=== PATIENT | female | born 1945 | race Caucasian/White ===

== ENCOUNTER → 2017-02-26 | Outpatient (CLI) | payer MEDICARE, OTHER ==
[~2017-02-26] MED LIST: ASPIRIN325 MG PO; HYDREA500 MG PO; HYZAAR 100-251 EACH PO; NORCO 5-325 TA1 EACH PO; NORVASC10 MG PO
--- NOTE | ~2017-02-26 | NDGEN ---
PATIENT'S NAME: CJ REBOLLEDO [facility] AGE: 71 Y [address] ROOM: [place] [address] LOCATION: [facility] ADMIT DATE: 02/26/2017 Neurodiagnostics DISCHARGE DATE: FAMILY PHYSICIAN: Garcia Rosa DO ATTENDING PHYSICIAN: Garcia Rosa Procedure Date 02/26/17 PROCEDURE: NERVE CONDUCTION STUDY, EMG OF THE BILATERAL LOWER EXTREMITIES. THE PATIENT COMES IN WITH A CHIEF COMPLAINT OF PAIN INTO HER GREAT TOE. THE PAIN IS PRIMARILY AT THE TIP OF THE TOE AND NOT PROXIMAL TO THE DISTAL JOINT OF THE GREAT TOE. THERE IS NO PAIN INTO THE FOOT BILATERALLY. THE PATIENT HAS EXCELLENT POWER IN THE BILATERAL LOWER EXTREMITIES ON DORSIFLEXION PLANTAR FLEXION, EVERSION, AND INVERSION OF THE FEET. WITH HER FEET DANGLING, THE FEET BECOME DUSKY PURPLISH IN COLOR AND THAT SEEMS TO BE POSITIONALLY RELATED WITH HER FEET ON THE BED THE COLOR IS NORMAL. THE NERVE CONDUCTION STUDIES WERE PERFORMED STIMULATING THE PERONEAL TIBIAL MOTOR AND THE SURAL SENSORY NERVES. THE NERVE CONDUCTION VELOCITIES WERE ALL WITHIN NORMAL LIMITS, AND THE MOTOR ONSET LATENCIES WERE ALL NORMAL. THERE WAS SLIGHTLY LOW AMPLITUDES IN THE RIGHT PERONEAL NERVE AND THE ETIOLOGY OF THIS IS UNCLEAR BUT WILL LIKELY BE REPEATED AFTER THE DICTATION HERE. SENSORY NERVE CONDUCTION STUDIES WERE PERFORMED AND PEAK ONSET LATENCIES WERE ALL NORMAL AND NERVE CONDUCTION VELOCITIES WERE ALL NORMAL. TYPICALLY, THE ABSENCE OF SURAL NERVE CONDUCTIONS IS COMMON AFTER AGE 65. THE PRESENCE OF THE SURAL NERVE ACTION POTENTIAL AFTER THIS AGE IS A GOOD SIGN. NEEDLE EMG WAS NEXT PERFORMED IN THE RIGHT LOWER EXTREMITY AT THE TIBIALIS ANTERIOR MUSCLE TO RULE OUT ANY EVIDENCE OF A COMPRESSIVE NEUROPATHY. THE NERVE UNIT ACTION POTENTIALS WERE ALL NORMAL ON RECRUITMENT AND THERE WAS NO EVIDENCE OF ANY FIBRILLATION POTENTIALS OR POSITIVE SHARP WAVES WITH THE MUSCLE AT REST. IMPRESSION: The motor and sensory nerve conduction studies were all within normal limits, though there were somewhat low amplitudes in the right peroneal nerve. This will be repeated as it may just be a technical error here and this report will be updated. Needle EMG study does not support evidence for a mononeuropathy or process such as a peroneal palsy since the tibialis anterior muscle is normal and motor recruitment is normal. Differential diagnosis would possibly include a vasculitic type processes as the patient does have painful skin to the touch, such that a leukocytoclastic vasculitis would be considered possibly in the setting of a thrombophilia. The patient does have some symptoms that are suggestive of a Raynaud type of pain on exposure to PATIENT'S NAME: CJ REBOLLEDO [facility] AGE: 71 Y [address] ROOM: [place], [place] [address] LOCATION: [facility] ADMIT DATE: 02/26/2017 Neurodiagnostics DISCHARGE DATE: FAMILY PHYSICIAN: Garcia Rosa DO ATTENDING PHYSICIAN: Garcia Rosa thus medications such as dihydropyridine calcium channel michel may be considered. MD DANII DURANT/ludivina /[id number] dtt: 03/05/17 1702 , CYRUS CORREA dtd: 02/26/17 2033
--- NOTE | ~2017-02-26 | NDGEN ---
PATIENT'S NAME: CJ REBOLLEDO [facility] AGE: 71 Y [address] ROOM: [place] [address] LOCATION: [facility] ADMIT DATE: 02/26/2017 Neurodiagnostics DISCHARGE DATE: FAMILY PHYSICIAN: Garcia Rosa DO ATTENDING PHYSICIAN: Garcia Rosa DATE OF PROCEDURE: 02/26/2017 ADDENDUM: This 71-year-old female patient has isolated pain that is affecting her right great toe as well as some numbness that seems to be relegated to the webbing between the great and second toe, and then the anterior portion of the distal dorsum of the right foot numbness also goes on to the toes of the right foot, mostly the great toe and second toe allodynia to touch at the right toe. As previously mentioned, we repeated the right peroneal motor testing when amplitudes were found to be below 1 mV in the range of 500 microvolts; however, the onset latencies and nerve conduction velocities seemed to be well preserved. This is an odd presentation as this does not point to a focal compression neuropathy at the fibular head and there was no slowing at the fibular head. The patient does have a history of a right ankle injury when she was a young girl which caused her right foot to swell up, but no known history of fracture of the ankle was reported. IMPRESSION: There definitely is low amplitudes in the right peroneal nerve with preserved onset latencies and nerve conduction studies. 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 Right peroneal nerve supplies the dorsum of the foot particularly at the great toe and sensory perception at the base of the great toe area. 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 It is surprising however, the patient does not have any weakness on dorsiflexion and eversion of the foot. Nonetheless, I recommended that the patient make sure that she walks at home with shoes as she does state that she walks barefoot all the time. It is quite possible with senescent of the nerve with time, that a simple painful focal neuropathy is developed due to some poorly localized injury to the right peroneal motor nerve that carry autonomic fibers for pain. PATIENT'S NAME: CJ REBOLLEDO [facility] AGE: 71 Y [address] ROOM: [place], [place] [address] LOCATION: [facility] ADMIT DATE: 02/26/2017 Neurodiagnostics DISCHARGE DATE: FAMILY PHYSICIAN: Garcia Rosa DO ATTENDING PHYSICIAN: Garcia Rosa MD JRM/ludivina /[id number] dtt: 03/05/17 1712 , CYRUS CORREA dtd: 02/26/17 2127
== END | disposition disaster alternative care site (69) ==
LOC: GNEU 14:22
DX: M79.674 Pain in right toe(s) (principal); R20.0 Anesthesia of skin; Z87.828 Personal history of other (healed) physical injury and trauma

== ENCOUNTER 2017-03-04 11:15 | Inpatient (IN) | payer MEDICARE, OTHER ==
[~2017-03-04] VITALS: Ht 160 cm; Wt 95.9 kg
--- NOTE | ~2017-03-04 | CON ---
PATIENT'S NAME: CJ REBOLLEDO [facility] AGE: 71 Y [address] ROOM: [place] [id number] [place] [facility] [place] DATE: 03/04/2017 Consultation DISCHARGE DATE: FAMILY PHYSICIAN: Garcia Rosa DO ATTENDING PHYSICIAN: CYRUS PERALTA DATE OF CONSULTATION: 03/04/2017 REFERRING PHYSICIAN: Eleuterio Kelley MD PRINCIPAL DIAGNOSES: 1. Acute cholecystitis. 2. Abdominal pain. HISTORY: The patient is a 71-year-old old female who presented to an outside hospital with complaints of abdominal pain, and the patient states that the pain began 2 days previously. On both occasions, the pain came after meals. Yesterday, she noted some nausea and vomiting along with the pain again after meals. She was seen at an outside hospital where an ultrasound was done and felt to be consistent with acute cholecystitis and we therefore asked to see her in consultation for possible treatment of her acute cholecystitis. PAST MEDICAL HISTORY: Significant for thrombocytosis, the etiology of the thrombocytosis is not clear, and she has been evaluated for it and hypertension. PAST SURGICAL HISTORY: Significant for some surgery involving her toe. ALLERGIES: NONE. MEDICATIONS: 1. Norvasc 10 mg p.o. daily. 2. Aspirin 325 p.o. daily. 3. Hydroxyurea 100 mg p.o. Saturday, Saturday, and Saturday. 4. Hyzaar 1 tab p.o. every day. PHYSICAL EXAMINATION: GENERAL: She is awake, alert, and oriented x3. Complaining of some right upper quadrant pain. LUNGS: Clear. HEART: Regular rate and rhythm. ABDOMEN: Soft. Mild tenderness in the right upper quadrant, but no guarding and no rebound. NEUROLOGIC: Sensory and motor are intact. PATIENT'S NAME: CJ REBOLLEDO [facility] AGE: 71 Y [address] ROOM: [place] [address] [place] [facility] [place]: 03/04/2017 Consultation DISCHARGE DATE: FAMILY PHYSICIAN: Garcia Rosa DO ATTENDING PHYSICIAN: CYRUS PERALTA LABORATORY VALUES: Pending, but white blood cell count from the outside hospital was 5400 with a hemoglobin of 12.2 and hematocrit of 39, and our labs here are pending. She also had a BUN of 25, creatinine is 1.29, potassium 3.6 on labs from the outside hospital. Lipase from the outside hospital was 45. Ultrasound done at an outside hospital showed both gallstones as well as sludge and gallbladder wall thickening and was felt to be consistent with acute cholecystitis. ASSESSMENT AND PLAN: A 71-year-old female with abdominal pain, nausea, vomiting after meals. The ultrasound is consistent with acute cholecystitis. No evidence of choledocholithiasis. Plan is surgery pending medical clearance. ALEJANDRO KELLEY MD CC/modl /[id number] d: t: 03/04/17 2329, CONSULTATION REPORT
--- NOTE | ~2017-03-04 | HP ---
PATIENT'S NAME: CJ REBOLLEDO [facility] AGE: 71 Y [address] ROOM: [place] [address] [place] [facility] [place] DATE: 03/04/2017 History & Physical DISCHARGE DATE: FAMILY PHYSICIAN: Garcia Rosa DO ATTENDING PHYSICIAN: CYRUS PERALTA DATE OF SERVICE: 03/04/2017 CHIEF COMPLAINT: Transferred from outside facility for acute cholecystitis and surgical intervention. HISTORY OF PRESENT ILLNESS: This is a very pleasant 71-year-old female with past medical history notable for hypertension, essential thrombocytosis, transferred from outside hospital after presenting with right upper quadrant predominant abdominal pain. Pain began yesterday afternoon and the patient has been unable to tolerate any food since then with associated nausea and vomiting. She denies any recent fevers or chills. She has not had symptoms such as this previously. Upon presentation to the outside facility, she was noted to be afebrile with stable vital signs and absence of leukocytosis. Workup included normal liver function tests and lipase. EKG was without ischemic changes. Ultrasound of the abdomen was pursued, which showed significant gallbladder stones and sludge with a thickened gallbladder wall concerning for acute cholecystitis. Common bile duct was not dilated at 6 mm and no choledocholithiasis was appreciated on ultrasound. Surgical intervention was thus recommended and surgery was called here at [facility], who accepted this patient for transfer to our facility. Currently, the patient notes pain is ongoing 8 to 10 out of 10 primarily in the right upper quadrant, but it does radiate across the upper abdomen entirely. She notes no recent chest pain or shortness of breath. Previously, she was an active female, unable to walk without any cardiopulmonary symptoms including no chest pain or shortness of breath. She has not had prior reactions to anesthesia. She has no history of kidney disease, diabetes, stroke, TIA, or heart failure. PAST MEDICAL HISTORY: 1. Essential hypertension. 2. Essential thrombocytosis. 3. Obesity. PAST SURGICAL HISTORY: 1. Left total knee arthroplasty in 2011 at [facility]. 2. Normal vaginal delivery remotely. FAMILY HISTORY: PATIENT'S NAME: CJ REBOLLEDO [facility] AGE: 71 Y [address] ROOM: [place] [address] [place] [facility] [place] DATE: 03/04/2017 History & Physical DISCHARGE DATE: FAMILY PHYSICIAN: Garcia Rosa DO ATTENDING PHYSICIAN: CYRUS PERALTA Reviewed and noncontributory. No hepatobiliary pathology noted in family history. SOCIAL HISTORY: The patient denies significant alcohol or tobacco use. No illicit drug use. ALLERGIES: NO KNOWN DRUG ALLERGIES. MEDICATIONS: At home reviewed via home list include: 1. Losartan/hydrochlorothiazide. 2. Also amlodipine. 3. Aspirin 325. REVIEW OF SYSTEMS: Complete review of systems performed and negative except as noted above in HPI. PHYSICAL EXAMINATION: VITAL SIGNS: Reviewed. Most recently just during transport which note temp 96.7, blood pressure 166/95, respirations 18, pulse 82, saturating 99% on room air, weight 95.7 kg. GENERAL: The patient is in moderate distress, secondary to abdominal pain otherwise, resting comfortably in hospital bed. HEAD: Normocephalic and atraumatic. Eyes; pupils equal, round, and reactive to light. Extraocular muscles intact. No scleral icterus appreciated. ENT; moist mucous membranes. No nasal discharge. NECK: Supple. No lymphadenopathy. No thyromegaly. No JVD. CARDIOVASCULAR: Regular rate and rhythm. No murmurs, rubs, or gallops appreciated. Pulses 2+ bilaterally in radial and dorsalis pedis. LUNGS: Clear to auscultation bilaterally with normal respiratory effort. Saturating well on room air. ABDOMEN: Soft, nondistended, obese, and exquisitely tender to palpation over right upper costal margin and also over epigastrium. EXTREMITIES: Without appreciable edema. SKIN: Without visualized lesions on exposed trunk or extremities. NEUROLOGIC: The patient is alert and oriented x3. Exam notable for strength 5/5 of all extremities. No focal deficits appreciated. PSYCH: Normal mood and affect. LABORATORIES AND IMAGING: Labs and imaging reviewed from outside hospital as they are pending here. These are notable for CBC with white count 5.4, hemoglobin 12.9, platelets 393. Metabolic panel with sodium 136, potassium 3.6, chloride 103, bicarb 26, PATIENT'S NAME: CJ REBOLLEDO [facility] AGE: 71 Y [address] ROOM: [place] [address] [place] [facility] [place] DATE: 03/04/2017 History & Physical DISCHARGE DATE: FAMILY PHYSICIAN: Garcia Rosa DO ATTENDING PHYSICIAN: CYRUS PERALTA BUN 25, creatinine 1.29, glucose 124, calcium 9.1, AST 20, ALT 12, alkaline phosphatase 65, total bilirubin 0.5, lipase 45. Ultrasound of abdomen which shows extensive stones and sludge with thickened gallbladder wall and common bile duct measuring 6 mm without apparent choledocholithiasis, read as likely acute cholecystitis. ASSESSMENT: 1. Acute cholecystitis. 2. Essential hypertension. 3. Essential thrombocytosis. 4. Obesity. 5. Acute kidney injury. PLAN: At this point, as there are no indicators of infectious complications, we will hold off on antibiotics. Surgery has been consulted and was made aware prior to arrival and the patient will be slated to undergo cholecystectomy. This is in the absence of evidence to suggest choledocholithiasis. We will attempt to control pain with morphine sulfate, nausea with Zofran. We will repeat CBC, CMP, lipase, and Procal now to ensure no concern for infectious etiology and start antibiotics, likely Zosyn if necessary. We will hold the patient's home aspirin and plan to continue/resume home antihypertensives tomorrow pending course. The patient does have a mildly elevated creatinine at 1.29 with uncertain baseline. We will rehydrate gently and repeat in morning. We will hold off on DVT prophylaxis at this time given likely surgical intervention. We will maintain n.p.o. status in the interim. The patient requests to be DNR, but is amenable to full code status during the time of the procedure. DISPOSITION: Pending surgical plans. I spent 25 minutes on date of admission involving direct [id number] patient care and review of outside records. MD YASMEEN BRAN/ludivina PATIENT'S NAME: CJ REBOLLEDO [facility] AGE: 71 Y [address] ROOM: [place] [address] [place] [facility] [place] DATE: 03/04/2017 History & Physical DISCHARGE DATE: FAMILY PHYSICIAN: Garcia Rosa DO ATTENDING PHYSICIAN: CYRUS PERALTA /[id number] D: [id number] T: 009 HISTORY & PHYSICAL
--- NOTE | ~2017-03-04 | OR ---
PATIENT'S NAME: CJ REBOLLEDO [facility] AGE: 71 Y [address] ROOM: [address] [address] [place] [facility] [place]: 03/04/2017 OR/Procedure Report DISCHARGE DATE: 03/07/2017 FAMILY PHYSICIAN: Garcia Rosa DO ATTENDING PHYSICIAN: Juan Mcdaniels SURGEON: Troy Cronin MD REFERRAL CLERK: Bhupinder Charles PA-C. DATE OF PROCEDURE: 03/06/2017 REFERRING PHYSICIAN: Juan Mcdaniels MD PREOPERATIVE DIAGNOSES: 1. Gallstone pancreatitis. 2. Cholecystitis, cholelithiasis. POSTOPERATIVE DIAGNOSES: 1. Gallstone pancreatitis. 2. Acute cholecystitis, cholelithiasis. 3. Possible filling defect, distal common bile duct. PROCEDURES: Laparoscopic cholecystectomy with intraoperative cholangiogram. ANESTHESIA: General with 30 mL of 0.5% Marcaine. CHOLANGIOGRAM FINDINGS: Cannulation of cystic duct with normal anatomy identified, possible small defect in distal common bile duct versus normal variety with free flow of contrast into duodenum. INDICATION: The patient is a 71-year-old young lady admitted on 03/04/2017 for abdominal pain. She was found to have acute cholecystitis, cholelithiasis, elevated lipase indicating pancreatitis. She was cooled off for 48 hours and now presents for gallbladder removal. Her bilirubin is 2.1., and planned cholangiogram for common bile duct assessment. DESCRIPTION OF PROCEDURE: After informed consent, the patient was taken to the operating room. After general endotracheal anesthesia, the patient's abdomen was prepped and draped into a sterile field. A time-out was performed. We confirmed the patient, planned procedure, and administration of preop antibiotics. Local anesthetic was infiltrated prior to each incision. The first one made below the umbilicus and carried down to identify the anterior fascia, through which a Veress needle was inserted and pneumoperitoneum was created. Trocar and laparoscope inserted and safe entry was noted. Under direct vision, the remaining trocars were placed. We placed additional left upper quadrant 5-mm port and used a Fan retractor to hold down the colon and the stomach. In order to visualize the infundibulum, we had to PATIENT'S NAME: CJ REBOLLEDO [facility] AGE: 71 Y [address] ROOM: [id number] [place], [place] [address] [place] [facility] [place]: 03/04/2017 OR/Procedure Report DISCHARGE DATE: 03/07/2017 FAMILY PHYSICIAN: Garcia Rosa DO ATTENDING PHYSICIAN: Juan Mcdaniels aspirate out 60 mL of purulent bile in order to grab the fundus of the gallbladder due to edema and hydropic appearance. Once retracted, we took down the lateral gallbladder reflection of the liver to open up the window. We stripped down the edematous tissue and isolated out the cystic duct and cystic artery. Cystic duct was dilated. We placed a clip on the gallbladder side, did a small cystotomy, and placed our cholangiogram catheter with the above-mentioned results. We then removed the catheter, clipped the cystic duct x3 distally and divided. We then placed clips on the cystic artery and divided. The gallbladder was removed from liver bed with some difficulty due to the edema and adhesions. The back wall actually was adherent to the gallbladder, it opened up and spilled copious amounts of stones. Once the gallbladder was removed with the remaining stones within it, we placed an EndoCatch bag and brought it out through the fascial defect at the umbilicus. We obtained another endobag, placed it into the right upper quadrant, and then individually picked up all the stones that had spilled. We copiously irrigated and saw no additional stones, and we removed the bag. We then irrigated one final time until clear. Then, myles were inspected and intact. We used Endo Stitch to close the subfascial defect, removed all the remaining trocars and closed the fascial defect at the umbilicus with 0 Vicryl. The wound was closed with subcuticular 4-0 Vicryl. Steri-Strips and sterile dressings were applied. The patient tolerated the procedure well and was transferred to the recovery room in a stable condition. TROY CRONIN MD WTDebora/modl /[id number] d: t: 03/09/17 0815, OPERATIVE SUMMARY
--- NOTE | ~2017-03-04 | CON ---
PATIENT'S NAME: CJ REBOLLEDO [facility] AGE: 71 Y [address] ROOM: [id number] [place], [place] [address] [place] [facility] [place]: 03/04/2017 Consultation DISCHARGE DATE: FAMILY PHYSICIAN: Garcia Rosa DO ATTENDING PHYSICIAN: CYRUS PERALTA DATE OF CONSULTATION: 03/06/2017 REFERRING PHYSICIAN: Eleuterio Beauchamp MD REASON FOR CONSULTATION: Suspected choledocholithiasis. HISTORY OF PRESENT ILLNESS: This is a very pleasant 71-year-old female, who presented to an outside facility with complaints of abdominal pain that progressively worsened over the past few weeks. The patient states that the pain came after eating and was associated with nausea and vomiting. The patient underwent an abdominal ultrasound and felt her gallbladder was slightly thick walled and showing acute cholecystitis. The patient was then requested to come to [place] for further evaluation. She subsequently underwent a laparoscopic cholecystectomy per Dr. Godoy. The patient also had an intraoperative cholangiogram performed at that time, where a possible small filling defect was noted in the distal common bile duct. We were asked to see in consultation for this. The patient was seen and examined. Post laparoscopic cholecystectomy, she states she is doing well. Denies any acute nausea or vomiting at this time. She does have some generalized tenderness in her abdomen. Postsurgically, denies any previous change of bowels associated with the abdominal pain on evaluation. PAST MEDICAL HISTORY: Thrombocytosis with unclear etiology, hypertension. PAST SURGICAL HISTORY: Past surgical history to her toe, laparoscopic cholecystectomy, and left total knee arthroplasty in 2011. SOCIAL HISTORY: The patient is . Denies any alcohol, tobacco, or illicit drug use. FAMILY HISTORY: The patient denies any known gastrointestinal diseases or cancers to her knowledge. ALLERGIES: PATIENT'S NAME: CJ REBOLLEDO [facility] AGE: 71 Y [address] ROOM: [address] [place], [place] [address] [place] [facility] [place]: 03/04/2017 Consultation DISCHARGE DATE: FAMILY PHYSICIAN: Garcia Rosa DO ATTENDING PHYSICIAN: CYRUS PERALTA NO KNOWN MEDICATION ALLERGIES. CURRENT MEDICATIONS: Please refer to the medication administration record. REVIEW OF SYSTEMS: All-point review of systems was completed. All were negative except for those identified in the history of present illness. PHYSICAL EXAMINATION: GENERAL: A very pleasant 71-year-old female, lying in bed, who appears to be in no acute distress. VITAL SIGNS: Temperature 98.2, pulse of 98, respirations of 25, blood pressure 131/63, and oxygen saturations 95% on 2 L nasal cannula. SKIN: [place], warm, dry. No jaundice. HEENT: Head is normocephalic and atraumatic. Pupils equal, round, and reactive to light. Sclerae are clear. Nonicteric. Oral mucosa is pink and moist. NECK: Soft and supple. CARDIOVASCULAR: Regular, normal S1 and S2. RESPIRATORY: Respirations even and unlabored. LUNGS: Clear to auscultation. ABDOMEN: Soft, round, hypoactive bowel sounds x4 quadrants. Five dressings are intact from laparoscopic cholecystectomy. Mild tenderness throughout. MUSCULOSKELETAL: No muscle weakness or atrophy. EXTREMITIES: No edema. NEUROLOGIC: Grossly nonfocal. LABS AND DIAGNOSTICS: Laboratory obtained this morning prior to surgical intervention included a white blood cell count of 7.7, hemoglobin of 10.9, hematocrit of 33.5, and platelets of 268. Chemistry panel includes a glucose of 92, BUN of 19, creatinine of 1.7, sodium 140, potassium of 3.6, chloride of 107, CO2 of 28, and albumin of 2.9. AST 46, down from 91; ALT of 82, down from 100; alkaline phosphatase of 86, down from 97; and total bilirubin was 2.1 up from 1.6. Amylase 92, lipase is 316, down from 900. ASSESSMENT AND PLAN: Again, this is a very pleasant 71-year-old female, who was admitted with abdominal pain, subsequently was found to have acute cholecystitis undergoing a laparoscopic cholecystectomy with intraoperative cholangiogram. Intraoperative cholangiogram showed possible distal common bile duct stone. This was discussed in depth with the patient. The patient currently is on Mefoxin as this should also be continued to cover for acute cholecystitis. At this time, we will make the patient n.p.o. after midnight. ERCP was discussed PATIENT'S NAME: CJ REBOLLEDO [facility] AGE: 71 Y [address] ROOM: [place] [address] [place] [facility] [place]: 03/04/2017 Consultation DISCHARGE DATE: FAMILY PHYSICIAN: Garcia Rosa DO ATTENDING PHYSICIAN: SHUDA,CYRUS D with the patient as well as the patient's family, who was at bedside. We will obtain laboratory in the morning for further evaluation. If LFTs have increased intervention including ERCP will likely be warranted at that time. Further recommendations to be given after receipt of the patient's laboratory as well as symptom improvement. Thank you for this consult. HANNAH HENDERSON APRN FOR [address] [place]/modl /[id number] d: 03/06/172000 t: 03/08/17 181, CONSULTATION REPORT
--- NOTE | ~2017-03-04 | DS ---
PATIENT'S NAME: CJ REBOLLEDO [facility] AGE: 71 Y [address] ROOM: [address] [address] LOCATION: [facility] ADMIT DATE: 03/04/2017 Discharge Summary DISCHARGE DATE: 03/07/2017 FAMILY PHYSICIAN: Garcia Rosa DO ATTENDING PHYSICIAN: Juan Mcdaniels FINAL DIAGNOSES: 1. Acute cholecystitis. 2. Acute biliary pancreatitis. 3. Acute blood loss anemia. 4. Essential hypertension. PROCEDURES: She had a lap jalen with intraoperative cholangiogram by Dr. Stef Godoy on March 06, 2017. For details of admission, please see the history and physical dictated by Dr. Mcdaniels on March 04. In short, the patient presented with acute cholecystitis and was admitted for further evaluation. She was noted to have an elevated amylase and lipase on admission. LABORATORY DATA: On admission, sodium 141, discharge 140, potassium on admission 3.8, discharge 4, chloride on admission 105, discharge 110, CO2 on admission 29, discharge 25, BUN on admission 21, discharge 20, creatinine on admission was 1.3, got as high as 1.7 on the 6th, discharge 1.4, total bilirubin on admission was 0.7, on the 2nd hospital day, it was 1.6, 3rd hospital day 2.1, date of discharge 0.7, alk phos on admission was 75, AST on admission 31, did bump up to 91, 35 prior to discharge, ALT on admission 24, did bump up to 100 on the 2nd hospital day, discharge 65, lipase on admission was 900, most prior to discharge 71. White blood cell count on admission was 6.7 with a left shift, 6 bands, her hemoglobin was 12.4, hematocrit 37.4, and platelet count 343, on 2nd hospital day, hemoglobin was 10.9, date of discharge 8.3, platelet count on admission was 343, discharge 236. Procalcitonin on admission was less than 0.05. HOSPITAL COURSE: The patient was admitted with a diagnosis of cholecystitis. She was seen and admitted. She was given IV hydration and she was given Zofran and morphine for pain. She was initiated on IV antibiotics. She was seen by Surgery and it was felt that she would probably be a candidate for a lap jalen. Her bilirubin did jump on the 2nd hospital day; so, decision was to wait and monitor her. On the 6th, it was felt that even though her bilirubin was up to 2.1, she was stable to go to the OR. In the OR, an intraoperative cholangiogram was done and did not show any evidence of a stone. She was monitored another night and her bilirubin returned to normal. Postoperatively, she did quite well, her hemoglobin did drop a little bit; however, she was hemodynamically stable and it was felt she was stable for discharge and discharged to home. Her diet, no restrictions from her routine. PATIENT'S NAME: CJ REBOLLEDO [facility] AGE: 71 Y [address] ROOM: [place] [address] LOCATION: [facility] ADMIT DATE: 03/04/2017 Discharge Summary DISCHARGE DATE: 03/07/2017 FAMILY PHYSICIAN: Garcia Rosa DO ATTENDING PHYSICIAN: Juan Mcdaniels Post lap jalen activity restrictions, she will remove the bandage in 2 to 3 days, she is to see Dr. Garcia Rosa, her primary provider in 2 weeks, see Dr. Godoy with a liver panel in 1 week. MEDICATIONS: 1. Norvasc 10 mg daily. 2. Urea 500 mg Saturday, Saturday, Saturday. 3. [place] 5/325 1 to 2 every 4 hours as needed for pain, she was sent with 20. 4. Hyzaar 100/25 1 tablet daily. 5. Aspirin 325 mg daily. PROGNOSIS: Overall, prognosis at discharge is good. I did speak with her primary care provider Dr. Rosa. JARED KAUR MD LAW/modl /[id number] CC: DO Troy Webb MD d: 03/08/17 0041 t: 03/11/17 1426, DISCHARGE SUMMARY
[2017-03-04] MEDS ORDERED: NORVASC10 MG PO (13:05)
[2017-03-04] MEDS ORDERED: HYZAAR 100-251 EACH PO (13:05)
[2017-03-04] MEDS ORDERED: HYDREA500 MG PO (13:06)
[2017-03-04] MEDS ORDERED: ASPIRIN325 MG PO (13:06)
[2017-03-04 14:50] LABS: HEMATOCRIT 37.4 % (33.0-46.0); HEMOGLOBIN 12.4 g/dL (10.0-15.0); MCH 30.5 pg (27.0-34.0); MCHC 33.2 gm/dL (32.0-36.5); MCV 92.1 fl (83.0-98.0); MPV 10.2 fl (9.4-12.4); PLATELET COUNT 343 K/uL (150-450); RBC 4.06 M/uL (3.50-5.50); RDW-CV 16.2 % (11.9-14.6); WBC 6.7 K/uL (4.0-11.0)
[2017-03-04 15:16] LABS: BANDED NEUTROPHIL # 0.4 K/uL (0.0-0.1); BANDED NEUTROPHILS % 6 %; LYMPHOCYTE # 0.5 K/uL (0.8-4.0); LYMPHOCYTE % 8 %; MONOCYTE # 0.2 K/uL (0.0-1.0); SEGMENTED NEUTROPHIL # 5.6 K/uL (1.8-7.8); SEGMENTED NEUTROPHIL % 83 %
[2017-03-04 15:19] LABS: ALBUMIN 3.8 gm/dL (3.5-5.0); ANION GAP 10.8 (10.0-19.0); CALCIUM 8.9 mg/dL (8.5-10.5); CREATININE 1.3 mg/dL (0.5-1.1); POTASSIUM 3.8 mMol/L (3.7-5.1); TOTAL BILIRUBIN 0.7 mg/dL (0.0-1.5); TOTAL PROTEIN 7.1 g/dL (6.0-8.4)
[2017-03-05 05:15] LABS: CALCIUM 8.6 mg/dL (8.5-10.5); CREATININE 1.3 mg/dL (0.5-1.1)
[2017-03-05 05:19] LABS: ALBUMIN 3.4 gm/dL (3.5-5.0)
[2017-03-05 05:21] LABS: TOTAL BILIRUBIN 1.6 mg/dL (0.0-1.5)
[2017-03-06 04:29] LABS: HEMATOCRIT 33.5 % (33.0-46.0); HEMOGLOBIN 10.9 g/dL (10.0-15.0); MCH 30.6 pg (27.0-34.0); MCHC 32.5 gm/dL (32.0-36.5); MCV 94.1 fl (83.0-98.0); MPV 9.6 fl (9.4-12.4); RBC 3.56 M/uL (3.50-5.50); WBC 7.7 K/uL (4.0-11.0)
[2017-03-06 04:39] LABS: PLATELET COUNT 268 K/uL (150-450)
[2017-03-06 04:52] LABS: ALBUMIN 2.9 gm/dL (3.5-5.0); ANION GAP 8.6 (10.0-19.0); CALCIUM 8.3 mg/dL (8.5-10.5); CREATININE 1.7 mg/dL (0.5-1.1); POTASSIUM 3.6 mMol/L (3.7-5.1); TOTAL PROTEIN 6.5 g/dL (6.0-8.4)
[2017-03-06 04:53] LABS: TOTAL BILIRUBIN 2.1 mg/dL (0.0-1.5)
[2017-03-06 05:07] LABS: ABSOLUTE NEUTROPHIL CT (ANC) 6.9 K/uL (1.8-7.8); BANDED NEUTROPHIL # 0.8 K/uL (0.0-0.1); BANDED NEUTROPHILS % 11 %; LYMPHOCYTE # 0.4 K/uL (0.8-4.0); LYMPHOCYTE % 5 %; MONOCYTE # 0.5 K/uL (0.0-1.0); SEGMENTED NEUTROPHIL % 78 %
[2017-03-07 03:57] LABS: HEMATOCRIT 25.6 % (33.0-46.0); HEMOGLOBIN 8.3 g/dL (10.0-15.0); MCH 30.3 pg (27.0-34.0); MCHC 32.4 gm/dL (32.0-36.5); MCV 93.4 fl (83.0-98.0); MPV 10.2 fl (9.4-12.4); PLATELET COUNT 236 K/uL (150-450); RBC 2.74 M/uL (3.50-5.50); RDW-CV 16.7 % (11.9-14.6); WBC 5.2 K/uL (4.0-11.0)
[2017-03-07 04:15] LABS: ALBUMIN 2.1 gm/dL (3.5-5.0); CALCIUM 7.7 mg/dL (8.5-10.5); CREATININE 1.4 mg/dL (0.5-1.1); TOTAL PROTEIN 5.5 g/dL (6.0-8.4)
[2017-03-07 04:20] LABS: TOTAL BILIRUBIN 0.7 mg/dL (0.0-1.5)
[2017-03-07 04:59] LABS: ABSOLUTE NEUTROPHIL CT (ANC) 4.5 K/uL (1.8-7.8); LYMPHOCYTE # 0.5 K/uL (0.8-4.0); LYMPHOCYTE % 10 %; MONOCYTE # 0.2 K/uL (0.0-1.0); SEGMENTED NEUTROPHIL # 4.5 K/uL (1.8-7.8); SEGMENTED NEUTROPHIL % 86 %
[2017-03-07] MEDS ORDERED: NORCO 5-325 TA1 EACH PO (13:08)
== END 2017-03-07 14:30 | disposition disaster alternative care site (69) | DRG 417 ==
LOC: GMSU 11:55
PROVIDERS: Physician Assistant; Surgery; ADMIT Internal Medicine
PROC: 0FT44ZZ Resection of Gallbladder, Percutaneous Endoscopic Approach (ICD-10-PCS; principal; 2017-03-06)
PROC: BF101ZZ Fluoroscopy of Bile Ducts using Low Osmolar Contrast (ICD-10-PCS; principal; 2017-03-06)
DX: K80.00 Calculus of gallbladder with acute cholecystitis without obstruction (principal); K85.10 Biliary acute pancreatitis without necrosis or infection; N17.9 Acute kidney failure, unspecified; D62 Acute posthemorrhagic anemia; I10 Essential (primary) hypertension; E66.9 Obesity, unspecified; Z68.37 Body mass index [BMI] 37.0-37.9, adult; D47.3 Essential (hemorrhagic) thrombocythemia; R74.0 Nonspecific elevation of levels of transaminase and lactic acid dehydrogenase [LDH]; Z79.82 Long term (current) use of aspirin; Z96.652 Presence of left artificial knee joint
CPT/HCPCS: J0694; J2001; J2270; J2405; J3010; J7030; J7040; J7050